=== PATIENT | female | born 1940 | race Caucasian/White ===

== ENCOUNTER → 2017-09-08 | Outpatient (CLI) | payer OTHER | LOC: RAD 13:02 | DX: M41.84 Other forms of scoliosis, thoracic region (principal); I10 Essential (primary) hypertension ==

== ENCOUNTER → 2019-07-02 | Outpatient (CLI) | payer OTHER | LOC: CAT 12:11 | DX: G31.9 Degenerative disease of nervous system, unspecified (principal); G25.0 Essential tremor; J34.89 Other specified disorders of nose and nasal sinuses ==

== ENCOUNTER → 2020-04-26 | Outpatient (CLI) | payer OTHER | LOC: RAD 14:20 → BC 15:41 | PROVIDERS: ATTEND Family Medicine | DX: Z12.31 Encounter for screening mammogram for malignant neoplasm of breast (principal); N60.01 Solitary cyst of right breast; Z98.890 Other specified postprocedural states; Z85.3 Personal history of malignant neoplasm of breast ==

== ENCOUNTER 2021-02-28 14:59 | Emergency (ER) | payer OTHER ==
[~2021-02-28] VITALS: Ht 157.5 cm; Wt 72.6 kg
[2021-02-28] MEDS ORDERED: AUGMENTIN 875-1 EACH PO (17:27)
[2021-02-28 17:38] VITALS: BP 125/76
== END 2021-02-28 17:38 | disposition home or self-care (01) ==
LOC: ER 14:59
DX: S81.811A Laceration without foreign body, right lower leg, initial encounter (principal); I10 Essential (primary) hypertension; J45.909 Unspecified asthma, uncomplicated; Z90.49 Acquired absence of other specified parts of digestive tract; Z88.5 Allergy status to narcotic agent; Z88.8 Allergy status to other drugs, medicaments and biological substances; Z88.6 Allergy status to analgesic agent; W55.03XA Scratched by cat, initial encounter; Y93.89 Activity, other specified; Y92.89 Other specified places as the place of occurrence of the external cause; Y99.8 Other external cause status

== ENCOUNTER → 2021-05-14 | Outpatient (CLI) | payer OTHER ==
[~2021-05-14] MED LIST: AUGMENTIN 875-1 EACH PO
== END ==
LOC: BC 12:45
PROVIDERS: ATTEND Family Medicine
DX: Z12.31 Encounter for screening mammogram for malignant neoplasm of breast (principal)

== ENCOUNTER 2021-07-02 15:49 | Emergency (ER) | payer OTHER ==
[~2021-07-02] VITALS: Ht 157.5 cm; Wt 72.6 kg
[2021-07-02 18:31] VITALS: BP 159/77
== END 2021-07-02 18:31 | disposition home or self-care (01) ==
LOC: ER 15:49
DX: S73.004A Unspecified dislocation of right hip, initial encounter (principal); I10 Essential (primary) hypertension; Z88.8 Allergy status to other drugs, medicaments and biological substances; Z90.49 Acquired absence of other specified parts of digestive tract; Z88.5 Allergy status to narcotic agent; X58.XXXA Exposure to other specified factors, initial encounter; Y93.89 Activity, other specified; Y92.89 Other specified places as the place of occurrence of the external cause; Y99.8 Other external cause status